=== PATIENT | female | born 1980 | race Caucasian/White ===

== ENCOUNTER 2017-03-03 20:44 | Inpatient (IN) | payer OTHER ==
[~2017-03-03] VITALS: Ht 162.6 cm; Wt 63.3 kg
[~2017-03-03 20:44] MED LIST: ADVAIR 500/501 DISK IH; AFRIN,GENASAL D15 ML BOTH NARES; AMOXICILLIN875 MG PO; ATARAX,VISTARIL50 MG PO; AUGMENTIN875 MG PO; BACTRIM,SEPT1 TABLET PO; Bactrim,Septra DS 80 PO; CIPRO500 MG PO; CITALOPRAM HBR20 MG PO; CITRATE OF MAG296 ML PO; CLEOCIN300 MG PO; CLINDAMYCIN HC300 MG PO; COLACE100 MG PO; DITROPAN5 MG PO; DOXYCYCLINE HY100 MG PO; EFFEXOR PO; Ecotrin PO; FLONASE16 G1 BOTH NARES; GABAPENTIN100 MG PO; HYCODAN SYRUP5 ML PO; HYDROXYZINE PAM50 MG PO; IBUPROFEN600 MG PO; K-Dur PO; KEFLEX500 MG PO; KLONOPIN0.5 M1 PO; MACROBID100 MG PO; MECLIZINE HCL25 MG PO; METHADONE PO; METHADONE10 MG PO; METHADOSE10 MG PO; MOTRIN IB200 MG PO; MOTRIN600 MG PO; MOTRIN800 MG PO; NAPROSYN500 MG PO; NAPROXEN500 MG PO; NEURONTIN100 MG PO; NOHOMEMEDS; NORCO 5/3251 TABLET PO; PEN-VEE K,VEET500 MG PO; PEPCID40 MG PO; PHENERGAN-CODE120 ML PO; PRILOSEC20 MG PO; PROAIR HFA8.5 GM IH; PYRIDIUM100 MG PO; REGLAN10 MG PO; ROBITUSSIN100 MG/5 M PO; SERTRALINE HCL50 MG PO; SILVADENE20 GM TP; TOPAMAX200 MG PO; TOPIRAMATE25 MG PO; TORADOL10 MG PO; TRAMADOL HCL50 MG PO; TYLENOL325 M1 PO; ULTRAM50 MG PO; ZITHROMAX Z-PA250 MG PO; ZITHROMAX500 MG PO; ZOFRAN ODT4 MG PO; ZOFRAN4 MG PO; ZYRTEC10 M3 PO
[2017-03-03 21:33] LABS: HEMATOCRIT 41.5 % (36.0-46.0); MCH 26.5 PG (29.0-34.0); MCV 82.7 FL (83-99); MEAN PLAT.VOLUME 9.5 uM^3 (9.5-12.4); PLATELET COUNT 273 K/uL (156-360); RBC DIS.WIDTH-CV 14.5 % (11.8-14.6); RBC DIS.WIDTH-SD 43.7 % (39-53); RED BLOOD COUNT 5.02 M/uL (3.80-5.20); WHITE BLOOD COUNT 6.6 K/uL (4.1-10.2)
[2017-03-03 21:42] LABS: CHLORIDE 110 mEq/L (99-109); POTASSIUM 3.8 mEq/L (3.7-5.4); SODIUM 142 mEq/L (136-147)
[2017-03-03 21:44] LABS: GLUCOSE 102 mg/dL (70-99)
[2017-03-03 21:45] LABS: ANION GAP 8 MEQ/L (2-14)
[2017-03-03 21:47] LABS: GFR ESTIMATE (CALCULATED) > 59 mL/min/; SERUM ETHYL ALCOHOL < 10 mg/dL
[2017-03-03 21:49] LABS: UREA NITROGEN (BUN) 9 mg/dL (9-23)
[2017-03-03 21:51] LABS: SALICYLATE < 5.0 MG/DL (15-30)
[2017-03-03 21:52] LABS: COCAINE PRESUMPTIVE POSITIVE (150 ng/mL); PHENCYCLIDINE NEGATIVE (25 ng/mL); THC CANNABINOIDS NEGATIVE (50 ng/mL)
[2017-03-03 21:53] LABS: AMPHETAMINE PRESUMPTIVE POSITIVE (500 ng/mL); BARBITURATES NEGATIVE (200 ng/mL); BENZODIAZEPINES NEGATIVE (150 ng/mL); INTERNAL CONTROLS VALID? YES; METHADONE PRESUMPTIVE POSITIVE (200 ng/mL); METHAMPHETAMINE NEGATIVE (500 ng/mL); OPIATES (MORPHINE) NEGATIVE (100 ng/mL); OXYCODONE NEGATIVE (100 ng/mL); PROPOXYPHENE NEGATIVE (300 ng/mL); TRICYCLIC ANTIDEPRESSANTS NEGATIVE (300 ng/mL)
[2017-03-03 21:54] LABS: ADD MEDTOX COMMENT Y
[2017-03-04 00:37] VITALS: BP 135/62
[2017-03-04 07:36] VITALS: BP 117/71
[2017-03-04] MEDS ORDERED: METHADONE1 MG/1 ML PO (07:57)
[2017-03-04 16:11] VITALS: BP 126/75
[2017-03-05 07:35] VITALS: BP 173/70
[2017-03-05 15:43] VITALS: BP 91/48
[2017-03-06 07:25] VITALS: BP 107/51
[2017-03-06 15:59] VITALS: BP 117/58
[2017-03-07 07:58] VITALS: BP 103/53
[2017-03-07] MEDS ORDERED: ZOLOFT100 MG PO (11:04)
== END 2017-03-07 12:10 | disposition home or self-care (01) | DRG 885 ==
LOC: EME 20:44 → EDOF 23:10 → 1WEST 23:10 → ENRESERV 03-04 00:24 → 1WEST 03-07 12:10
PROVIDERS: Emergency Medicine
DX: F33.2 Major depressive disorder, recurrent severe without psychotic features (principal); F60.3 Borderline personality disorder; R45.851 Suicidal ideations; F11.23 Opioid dependence with withdrawal; F14.20 Cocaine dependence, uncomplicated; K21.9 Gastro-esophageal reflux disease without esophagitis; F17.200 Nicotine dependence, unspecified, uncomplicated; F10.10 Alcohol abuse, uncomplicated; G43.909 Migraine, unspecified, not intractable, without status migrainosus; Z59.0 Homelessness
CPT/HCPCS: 80048; 84999; 85027; 90839; 97150 GO; 99281; 99284; G0480; Q0177

== ENCOUNTER 2017-07-25 05:48 | Inpatient (IN) | payer OTHER ==
[~2017-07-25] VITALS: Ht 162.6 cm; Wt 67.1 kg
[~2017-07-25 05:48] MED LIST changes: +METHADONE1 MG/1 ML PO; +ZOLOFT100 MG PO
[2017-07-25 07:17] LABS: HEMATOCRIT 38.7 % (36.0-46.0); HEMOGLOBIN 12.5 G/DL (11.9-15.5); MCH 27.8 PG (29.0-34.0); MCHC 32.3 G/DL (30.0-36.0); MCV 86.2 FL (83-99); PLATELET COUNT 267 K/uL (156-360); RBC DIS.WIDTH-CV 13.7 % (11.8-14.6); RBC DIS.WIDTH-SD 42.8 % (39-53); RED BLOOD COUNT 4.49 M/uL (3.80-5.20)
[2017-07-25 07:39] LABS: ALBUMIN 3.8 G/DL (3.2-4.8); CHLORIDE 105 MEQ/L (99-109); SODIUM 138 MEQ/L (136-147); TOTAL BILIRUBIN 0.3 MG/DL (0.0-1.0)
[2017-07-25 07:47] LABS: ALKALINE PHOSPHATASE 60 IU/L (3-129); ALT (GPT) 9 IU/L (3-49); AST (GOT) 20 IU/L (2-34); CREATININE 0.7 MG/DL (0.6-1.3); GFR ESTIMATE (CALCULATED) > 59 mL/min/; GLUCOSE 94 mg/dL (70-99); SERUM ETHYL ALCOHOL < 10 mg/dL; TOTAL PROTEIN 6.8 G/DL (6.4-8.3); UREA NITROGEN (BUN) 10 mg/dL (9-23)
[2017-07-25 11:45] LABS: APPEARANCE CLEAR ((CLEAR)); BILIRUBIN NEGATIVE; BLOOD NEGATIVE; COLOR YELLOW ((YELLOW)); GLUCOSE (STRIP) NEGATIVE; KETONES NEGATIVE; LEUKOCYTES NEGATIVE; NITRITE NEGATIVE; PROTEIN (STRIP) NEGATIVE; SPECIFIC GRAVITY 1.019 (1.000-1.030); UCUL ADDED? NO; UROBILINOGEN 0.2 MG/DL (0.2-1.0)
[2017-07-25 11:53] LABS: AMPHETAMINE NEGATIVE (500 ng/mL); BARBITURATES NEGATIVE (200 ng/mL); BENZODIAZEPINES PRESUMPTIVE POSITIVE (150 ng/mL); BUPRENORPHINE NEGATIVE (10 ng/mL); COCAINE PRESUMPTIVE POSITIVE (150 ng/mL); METHADONE PRESUMPTIVE POSITIVE (200 ng/mL); METHAMPHETAMINE NEGATIVE (500 ng/mL); OPIATES (MORPHINE) PRESUMPTIVE POSITIVE (100 ng/mL); OXYCODONE NEGATIVE (100 ng/mL); PHENCYCLIDINE NEGATIVE (25 ng/mL); PROPOXYPHENE NEGATIVE (300 ng/mL); THC CANNABINOIDS PRESUMPTIVE POSITIVE (50 ng/mL); TRICYCLIC ANTIDEPRESSANTS NEGATIVE (300 ng/mL)
[2017-07-25 12:37] LABS: BENZODIAZEPINES, URINE SCREEN POSITIVE (200 ng/mL)
[2017-07-25 13:13] VITALS: BP 135/73
[2017-07-25 16:57] VITALS: BP 135/80
[2017-07-26 07:40] VITALS: BP 90/53
[2017-07-26 15:43] VITALS: BP 131/56
[2017-07-27 07:31] VITALS: BP 110/56
[2017-07-27 15:39] VITALS: BP 123/62
[2017-07-28 07:33] VITALS: BP 108/54
[2017-07-28 15:58] VITALS: BP 129/60
[2017-07-29 07:31] VITALS: BP 115/71
[2017-07-29 16:10] VITALS: BP 136/62
[2017-07-30 07:46] VITALS: BP 85/39
[2017-07-30 15:36] VITALS: BP 127/61
[2017-07-31 07:20] VITALS: BP 128/58
[2017-08-01 07:55] VITALS: BP 996/55
[2017-08-01] MEDS ORDERED: TOPAMAX50 MG PO (09:51)
[2017-08-01] MEDS ORDERED: DESYREL100 MG PO (09:52)
[2017-08-01] MEDS ORDERED: ZOLOFT100 MG PO (09:52)
== END 2017-08-01 11:50 | disposition home or self-care (01) | DRG 885 ==
LOC: EME 05:48 → 1WEST 10:12 → EDOF 10:12 → 1WEST 10:12 → ENRESERV 11:27 → 1WEST 11:59
PROVIDERS: Emergency Medicine
DX: F33.2 Major depressive disorder, recurrent severe without psychotic features (principal); F60.3 Borderline personality disorder; F11.29 Opioid dependence with unspecified opioid-induced disorder; F14.23 Cocaine dependence with withdrawal; F10.20 Alcohol dependence, uncomplicated; Y90.0 Blood alcohol level of less than 20 mg/100 ml; R45.851 Suicidal ideations; F17.200 Nicotine dependence, unspecified, uncomplicated; Z91.14 Patient's other noncompliance with medication regimen; Z59.0 Homelessness; Z87.442 Personal history of urinary calculi
CPT/HCPCS: 70450; 80053; 81003; 84999; 85027; 90837; 94640; 94640 76; 99202; 99281; 99285; G0480; Q0177

== ENCOUNTER 2017-08-26 00:26 | Emergency (ER) | payer OTHER ==
[~2017-08-26] VITALS: Ht 160 cm; Wt 65.5 kg
[~2017-08-26 00:26] MED LIST changes: +DESYREL100 MG PO; +TOPAMAX50 MG PO
[2017-08-26 01:03] LABS: HEMATOCRIT 39.4 % (36.0-46.0); HEMOGLOBIN 12.8 G/DL (11.9-15.5); MCH 27.3 PG (29.0-34.0); MCHC 32.5 G/DL (30.0-36.0); PLATELET COUNT 213 K/uL (156-360); RBC DIS.WIDTH-CV 13.4 % (11.8-14.6); RBC DIS.WIDTH-SD 41.1 % (39-53); RED BLOOD COUNT 4.69 M/uL (3.80-5.20); WHITE BLOOD COUNT 10.6 K/uL (4.1-10.2)
[2017-08-26 01:12] LABS: CHLORIDE 105 mEq/L (99-109); POTASSIUM 3.5 mEq/L (3.7-5.4); SODIUM 139 mEq/L (136-147)
[2017-08-26 01:14] LABS: GLUCOSE 120 mg/dL (70-99)
[2017-08-26 01:18] LABS: CREATININE 0.8 mg/dL (0.6-1.3); GFR ESTIMATE (CALCULATED) > 59 mL/min/
[2017-08-26 01:19] LABS: UREA NITROGEN (BUN) 12 mg/dL (9-23)
[2017-08-26 01:25] LABS: TROP-I INTERPRETATION NEGATIVE; TROPONIN-I < 0.01 ng/mL (0.0-0.30)
[2017-08-26 02:51] LABS: APPEARANCE SL.HAZY ((CLEAR)); BILIRUBIN NEGATIVE; BLOOD SMALL; COLOR YELLOW ((YELLOW)); GLUCOSE (STRIP) NEGATIVE; KETONES NEGATIVE; LEUKOCYTES NEGATIVE; NITRITE NEGATIVE; PROTEIN (STRIP) 30; SPECIFIC GRAVITY 1.032 (1.000-1.030)
[2017-08-26 03:02] LABS: AMPHETAMINE NEGATIVE (500 ng/mL); BENZODIAZEPINES PRESUMPTIVE POSITIVE (150 ng/mL); COCAINE PRESUMPTIVE POSITIVE (150 ng/mL); METHADONE PRESUMPTIVE POSITIVE (200 ng/mL); METHAMPHETAMINE NEGATIVE (500 ng/mL); OPIATES (MORPHINE) NEGATIVE (100 ng/mL); PHENCYCLIDINE PRESUMPTIVE POSITIVE (25 ng/mL); THC CANNABINOIDS PRESUMPTIVE POSITIVE (50 ng/mL); TRICYCLIC ANTIDEPRESSANTS NEGATIVE (300 ng/mL)
[2017-08-26 03:03] LABS: BARBITURATES NEGATIVE (200 ng/mL); BUPRENORPHINE NEGATIVE (10 ng/mL); OXYCODONE NEGATIVE (100 ng/mL); PROPOXYPHENE NEGATIVE (300 ng/mL)
[2017-08-26 03:05] LABS: BACTERIA NONE SEEN /HPF; EPITHELIAL CELLS RARE /HPF; MUCUS 1+ /LPF; RED BLOOD CELLS 0-5 /HPF (0-5); UCUL ADDED? NO; WHITE BLOOD CELLS 0-5 /HPF (0-5)
[2017-08-26 03:40] LABS: BENZODIAZEPINES, URINE SCREEN POSITIVE (200 ng/mL)
[2017-08-26] MEDS ORDERED: ADVAIR 100/501 DISK IH (03:44)
[2017-08-26] MEDS ORDERED: ZITHROMAX Z-PA250 MG PO (03:44)
[2017-08-26 04:10] VITALS: BP 122/76
== END 2017-08-26 04:11 | disposition home or self-care (01) ==
LOC: EME 00:26
PROVIDERS: Emergency Medicine
DX: J20.9 Acute bronchitis, unspecified (principal); F19.10 Other psychoactive substance abuse, uncomplicated; K21.9 Gastro-esophageal reflux disease without esophagitis; B19.20 Unspecified viral hepatitis C without hepatic coma; F31.9 Bipolar disorder, unspecified; F90.9 Attention-deficit hyperactivity disorder, unspecified type; F32.9 Major depressive disorder, single episode, unspecified; F17.200 Nicotine dependence, unspecified, uncomplicated; Z79.891 Long term (current) use of opiate analgesic; Z85.828 Personal history of other malignant neoplasm of skin; Z88.8 Allergy status to other drugs, medicaments and biological substances
CPT/HCPCS: 71046; 80048; 81003; 84484; 84999; 85027; 93005; 94640; 99281; 99284

== ENCOUNTER 2017-08-28 01:18 | Emergency (ER) | payer OTHER ==
[~2017-08-28] VITALS: Ht 162.6 cm; Wt 63.5 kg
[~2017-08-28 01:18] MED LIST changes: +ADVAIR 100/501 DISK IH
[2017-08-28 06:28] LABS: HEMATOCRIT 36.7 % (36.0-46.0); HEMOGLOBIN 12.2 G/DL (11.9-15.5); MCH 27.6 PG (29.0-34.0); MCHC 33.2 G/DL (30.0-36.0); PLATELET COUNT 234 K/uL (156-360); RBC DIS.WIDTH-SD 39.9 % (39-53); RED BLOOD COUNT 4.42 M/uL (3.80-5.20); WHITE BLOOD COUNT 10.8 K/uL (4.1-10.2)
[2017-08-28 06:42] LABS: CHLORIDE 103 mEq/L (99-109); POTASSIUM 3.3 mEq/L (3.7-5.4); SODIUM 135 mEq/L (136-147)
[2017-08-28 06:44] LABS: GLUCOSE 109 mg/dL (70-99)
[2017-08-28 06:47] LABS: SERUM ETHYL ALCOHOL < 10 mg/dL
[2017-08-28 06:48] LABS: CREATININE 0.8 mg/dL (0.6-1.3); GFR ESTIMATE (CALCULATED) > 59 mL/min/
[2017-08-28 06:50] LABS: UREA NITROGEN (BUN) 12 mg/dL (9-23)
[2017-08-28 06:51] LABS: ACETAMINOPHEN (TYLENOL) < 10 mcg/mL (10-30); SALICYLATE < 5.0 MG/DL (15-30)
[2017-08-28 06:58] LABS: QUANTITATIVE HCG < 4.0 MIU/ML
[2017-08-28] MEDS ORDERED: MIRALAX17 GM PO (07:02)
[2017-08-28 07:37] VITALS: BP 121/69
== END 2017-08-28 07:51 | disposition home or self-care (01) ==
LOC: EME 01:18
PROVIDERS: Emergency Medicine
DX: F11.10 Opioid abuse, uncomplicated (principal); K59.00 Constipation, unspecified; R45.1 Restlessness and agitation; R05 Cough; M79.674 Pain in right toe(s); E87.6 Hypokalemia; Z85.828 Personal history of other malignant neoplasm of skin; F17.200 Nicotine dependence, unspecified, uncomplicated
CPT/HCPCS: 71045; 73630; 80048; 81003; 84702; 85027; 99281; 99284; G0480

== ENCOUNTER 2017-10-03 19:29 | Emergency (ER) | payer OTHER ==
[~2017-10-03] VITALS: Ht 162.6 cm; Wt 74.6 kg
[~2017-10-03 19:29] MED LIST changes: +MIRALAX17 GM PO
[2017-10-03 22:39] VITALS: BP 125/71
== END 2017-10-03 22:20 | disposition home or self-care (01) ==
LOC: EME 19:29
DX: R10.30 Lower abdominal pain, unspecified (principal); M79.604 Pain in right leg; M25.551 Pain in right hip; F14.90 Cocaine use, unspecified, uncomplicated; F17.200 Nicotine dependence, unspecified, uncomplicated
CPT/HCPCS: 93971; 99281; 99284

== ENCOUNTER 2017-11-14 20:35 | Inpatient (IN) | payer OTHER ==
[~2017-11-14] VITALS: Ht 162.6 cm; Wt 64.8 kg
[2017-11-14 21:46] LABS: BASOPHIL (%) 0.8 % (0-1); BASOPHIL COUNT 0.1 K/uL (0-0.1); EOSINOPHIL (%) 0.6 % (0-5); HEMATOCRIT 38.7 % (36.0-46.0); HEMOGLOBIN 12.1 G/DL (11.9-15.5); IMMATURE GRANULOCYTE (%) 0.3 % (0.0-0.7); LYMPHOCYTE (%) 27.6 % (15-42); LYMPHOCYTE COUNT 1.8 K/uL (1.0-2.8); MCH 26.6 PG (29.0-34.0); MCHC 31.3 G/DL (30.0-36.0); MCV 85.1 FL (83-99); MONOCYTE (%) 10.7 % (3-12); MONOCYTE COUNT 0.7 K/uL (0-0.8); PLATELET COUNT 266 K/uL (156-360); RBC DIS.WIDTH-CV 15.5 % (11.8-14.6); RBC DIS.WIDTH-SD 48.1 % (39-53); RED BLOOD COUNT 4.55 M/uL (3.80-5.20); WHITE BLOOD COUNT 6.7 K/uL (4.1-10.2)
[2017-11-14 21:56] LABS: ALBUMIN 3.5 g/dL (3.2-4.8); CHLORIDE 109 mEq/L (99-109); POTASSIUM 3.5 mEq/L (3.7-5.4); SODIUM 142 mEq/L (136-147)
[2017-11-14 21:59] LABS: GLUCOSE 106 mg/dL (70-99)
[2017-11-14 22:01] LABS: TOTAL BILIRUBIN 0.2 mg/dL (0.0-1.0)
[2017-11-14 22:02] LABS: SERUM ETHYL ALCOHOL < 10 mg/dL
[2017-11-14 22:03] LABS: ALKALINE PHOSPHATASE 77 IU/L (3-129); CREATININE 0.8 mg/dL (0.6-1.3); GFR ESTIMATE (CALCULATED) > 59 mL/min/
[2017-11-14 22:04] LABS: AST (GOT) 14 IU/L (2-34); UREA NITROGEN (BUN) 10 mg/dL (9-23)
[2017-11-14 22:06] LABS: ACETAMINOPHEN (TYLENOL) < 10 mcg/mL (10-30); ALT (GPT) 13 IU/L (3-49); SALICYLATE < 5.0 MG/DL (15-30)
[2017-11-14 22:12] LABS: QUANTITATIVE HCG < 4.0 MIU/ML
[2017-11-15 01:00] LABS: APPEARANCE CLEAR ((CLEAR)); BILIRUBIN SMALL; BLOOD LARGE; COLOR YELLOW ((YELLOW)); GLUCOSE (STRIP) NEGATIVE; KETONES 5; LEUKOCYTES NEGATIVE; NITRITE NEGATIVE; PROTEIN (STRIP) 30; SPECIFIC GRAVITY 1.036 (1.000-1.030)
[2017-11-15 01:03] LABS: BACTERIA NONE SEEN /HPF; CALCIUM OXALATE CRYSTALS 3+ /HPF; EPITHELIAL CELLS RARE /HPF; MUCUS 1+ /LPF; RED BLOOD CELLS TNTC /HPF (0-5); UCUL ADDED? YES; WHITE BLOOD CELLS 0-5 /HPF (0-5)
[2017-11-15 01:11] LABS: THC CANNABINOIDS PRESUMPTIVE POSITIVE (50 ng/mL)
[2017-11-15 01:12] LABS: AMPHETAMINE PRESUMPTIVE POSITIVE (500 ng/mL); BARBITURATES NEGATIVE (200 ng/mL); BENZODIAZEPINES NEGATIVE (150 ng/mL); BUPRENORPHINE NEGATIVE (10 ng/mL); COCAINE PRESUMPTIVE POSITIVE (150 ng/mL); METHADONE PRESUMPTIVE POSITIVE (200 ng/mL); METHAMPHETAMINE NEGATIVE (500 ng/mL); OPIATES (MORPHINE) NEGATIVE (100 ng/mL); OXYCODONE NEGATIVE (100 ng/mL); PHENCYCLIDINE NEGATIVE (25 ng/mL); PROPOXYPHENE NEGATIVE (300 ng/mL); TRICYCLIC ANTIDEPRESSANTS NEGATIVE (300 ng/mL)
[2017-11-15 15:08] VITALS: BP 120/65
[2017-11-15 15:10] VITALS: BP 120/65
[2017-11-16 08:00] VITALS: BP 122/71
[2017-11-16 15:23] VITALS: BP 94/52
[2017-11-17 07:44] VITALS: BP 100/59
[2017-11-17 15:50] VITALS: BP 111/54
[2017-11-18 08:21] VITALS: BP 100/56
[2017-11-18 16:19] VITALS: BP 108/65
[2017-11-19 08:04] VITALS: BP 100/49
[2017-11-19 16:46] VITALS: BP 112/65
[2017-11-20 07:54] VITALS: BP 101/55
[2017-11-20 17:12] VITALS: BP 114/55
[2017-11-21 08:08] VITALS: BP 96/49
[2017-11-21 16:19] VITALS: BP 110/56
[2017-11-22 09:04] VITALS: BP 94/47
[2017-11-22] MEDS ORDERED: TOPAMAX50 MG PO (09:21)
[2017-11-22] MEDS ORDERED: SERTRALINE HCL100 MG PO (09:21)
[2017-11-22] MEDS ORDERED: SINEQUAN25 MG PO (09:21)
== END 2017-11-22 11:41 | disposition home or self-care (01) | DRG 885 ==
LOC: EME 20:35 → EDOF 11-15 13:27 → ENRESERV 11-15 13:53 → 1WEST 11-15 14:56
PROVIDERS: Emergency Medicine
DX: F33.2 Major depressive disorder, recurrent severe without psychotic features (principal); R45.851 Suicidal ideations; B19.20 Unspecified viral hepatitis C without hepatic coma; F17.210 Nicotine dependence, cigarettes, uncomplicated; F41.9 Anxiety disorder, unspecified; Z59.0 Homelessness; F11.20 Opioid dependence, uncomplicated; M79.89 Other specified soft tissue disorders; Z65.3 Problems related to other legal circumstances; L29.9 Pruritus, unspecified; F14.20 Cocaine dependence, uncomplicated; F12.20 Cannabis dependence, uncomplicated; Z91.14 Patient's other noncompliance with medication regimen; Z81.8 Family history of other mental and behavioral disorders
CPT/HCPCS: 80053; 81003; 84702; 84999; 85025; 87086; 90839; 97150 GO; 97166 GO; 99281; 99285; G0480; Q0177

== ENCOUNTER 2018-02-13 14:50 | Emergency (ER) | payer OTHER ==
[~2018-02-13] VITALS: Ht 162.6 cm; Wt 63.6 kg
[~2018-02-13 14:50] MED LIST changes: +SERTRALINE HCL100 MG PO; +SINEQUAN25 MG PO
[2018-02-13 18:55] VITALS: BP 99/61
== END 2018-02-13 19:05 | disposition home or self-care (01) ==
LOC: EME 14:50
PROC: 0HQ0XZZ Repair Scalp Skin, External Approach (ICD-10-PCS; principal; 2018-02-13)
DX: S01.01XA Laceration without foreign body of scalp, initial encounter (principal); W01.0XXA Fall on same level from slipping, tripping and stumbling without subsequent striking against object, initial encounter; M50.30 Other cervical disc degeneration, unspecified cervical region; K21.9 Gastro-esophageal reflux disease without esophagitis; F31.9 Bipolar disorder, unspecified; F17.200 Nicotine dependence, unspecified, uncomplicated; Z79.891 Long term (current) use of opiate analgesic; Z87.19 Personal history of other diseases of the digestive system; Z85.9 Personal history of malignant neoplasm, unspecified; Z88.8 Allergy status to other drugs, medicaments and biological substances
CPT/HCPCS: 70450; 72125; 99281; 99284